=== PATIENT | male | born 1955 | race Caucasian/White ===

== ENCOUNTER → 2022-04-07 | Outpatient (CLI) | payer MEDICARE, OTHER ==
[2022-04-07 14:34] VITALS: BP 137/70; PULSE 63; RESP 17; TEMP 98.7
--- NOTE | 2022-04-07 15:01 | P.GSHP ---
History of Present Illness H&P Date: 04/07/22 Chief Complaint: pain right breast Salomón is a 66 year old white male with a complaint of right breast pain. He is seen in consultation for Mary Wade. He is complaining of pain in his right breast. He is not having any pain in his left breast. Feels a firmness in the right breast beneath the nipple areolar complex. Has not had any nipple discharge or skin changes. He is not complaining of any trauma or infection in the breast. He had a right breast diagnostic mammogram performed on [id number] as well as an ultrasound of the right breast. The findings on the mammogram showed the area of concern corresponded with a pattern most compatible with gynecomastia. On ultrasound there was an irregular hypoechoic mass that was 1.9 x 1.2 cm at the area of clinical concern. He has had a change in his diabetic medication. He smokes marijuana several times a month on the weekends. 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 Nicotine: stopped in 2015, used to smoke 2PPD for 6 years caffiene: Caffeine free coffee during the winter Family history: father: unknown type cancer maternal aunts and uncles with breast and colon cancer, and lung cancer in smokers Surgical history: right ankle and wrist bilateral carpel tunnel right hand back injections shoulder surgery gallbladder 5 cardiac stints Right eye removed Medical History: diabetes HTN Social History: Nicotine: Stopped in 2015, used to smoke 2 packs per day for 6 years Alcohol: stopped 1989, used to binge drink drugs: On the weekends - Constitutional Constitutional: Denies chills, Denies fever - EENT Eyes: bilateral as per HPI Ears: bilateral: decreased hearing, tinnitus Ears, nose, mouth and throat: Denies headache, Denies sore throat - Breasts Breasts: bilateral: as per HPI - Cardiovascular Cardiovascular: Reports as per HPI - Respiratory Respiratory: Reports cough - Gastrointestinal Comment: GERD - Genitourinary (Male) Genitourinary: Denies dysuria, Denies hematuria - Musculoskeletal Musculoskeletal: Reports myalgias - Integumentary Comment: Psoriasis - Neurological Neurological: Reports numbness, Reports weakness - Psychiatric Psychiatric: Reports anxiety - Endocrine Comment: diabetic - Hematologic/Lymphatic Comment: none - Allergic/Immunologic Allergic/Immunologic: Reports as per HPI Past Medical History Past Medical History: COPD, Diabetes Mellitus, Hypertension Additional Past Medical History / Comment(s): CHRONIC PAIN History of Any Multi-Drug Resistant Organisms: None Reported Past Surgical History: Back Surgery, Heart Catheterization With Stent, Joint Replacement, Orthopedic Surgery Additional Past Surgical History / Comment(s): 5 STENTS Past Anesthesia/Blood Transfusion Reactions: No Reported Reaction Date of Last Stent Placement:: 2008 Past Psychological History: No Psychological Hx Reported Smoking Status: Current every day smoker Past Alcohol Use History: None Reported Past Drug Use History: Marijuana Medications and Allergies Home Medications Medication Instructions Recorded Confirmed Type Unable To Assess [Unable to Assess] 04/07/22 04/07/22 History Allergies Allergy/AdvReac Type Severity Reaction Status Date / Time No Known Allergies Allergy Unverified 04/07/22 14:28 Surgical - Exam Vital Signs Temp Pulse Resp BP Pulse Ox 98.7 F 63 17 137/70 98 04/07/22 14:28 04/07/22 14:28 04/07/22 14:28 04/07/22 14:28 04/07/22 14:28 - General moderate distress - Eyes right eye enucleation - Neck trachea midline - Respiratory normal respiratory effort, clear to auscultation - Cardiovascular Heart Sounds: normal: S1, S2 - Abdomen Abdomen: soft, non tender, no guarding, no rigid, no rebound - Neurologic normal turgor - Psychiatric oriented to time, oriented to person, oriented to place, speech is normal, memory intact Breast Exam: inspection: No skin lesions or rashes of concern in the breast Palpation: Right breast: Nodularity palpable behind the right nipple areolar complex on multiple positional exam otherwise no dominant masses or nodules of concern Right axilla: No adenopathy of concern Left breast: Nodularity behind the nipple areolar complex but not as prominent as on the right After axilla: No adenopathy of concern Testicular exam: No lumps masses or nodules of concern right or left Results Mammogram and ultrasound results reviewed Assessment and Plan Assessment: Impression: Diabetes Hypertension Melanoma of the right eye Symptomatic right breast nodularity most likely gynecomastia Coronary artery disease with 5 stents Plan: Ultrasound-guided core biopsy right breast with follow-up at that time CC: Mary Wade
== END | disposition home or self-care (01) ==
LOC: WWCWWP 14:18
PROVIDERS: ATTEND Surgery
DX: Z53.9 Procedure and treatment not carried out, unspecified reason (principal)

== ENCOUNTER → 2022-04-14 | Day surgery (SDC) | payer MEDICARE, OTHER ==
--- NOTE | 2022-04-14 14:11 | USB ---
Findings: Real-time ultrasound imaging the findings appear to be compatible with gynecomastia. This was discussed with the patient and biopsy was canceled. Six-month follow-up ultrasound is recommended. Management: Diagnostic Breast Ultrasound of the right breast in 6 months. Electronically signed and approved by: Jose Armando Ramirez M.D. [facility]
== END ==
LOC: RADUSWWP 10:06
PROVIDERS: ATTEND Surgery
DX: N62 Hypertrophy of breast (principal); R92.8 Other abnormal and inconclusive findings on diagnostic imaging of breast; Z53.8 Procedure and treatment not carried out for other reasons